=== PATIENT | female | born 1990 | race Caucasian/White ===

== ENCOUNTER 2018-11-05 13:56 | Emergency (ER) | payer OTHER ==
[2018-11-05] MEDS ORDERED: NS 1,000 ML IV ONE (14:44)
[2018-11-05 15:17] LABS: PLATELET COUNT 214 10^3/uL (150-400)
[2018-11-05] MEDS ORDERED: HYDROmorphONE/DILAUDID 2 MG/ML INJ IVP ONE ×2 (15:29→17:58)
--- NOTE | 2018-11-05 15:49 | EDPHY ---
General - History Smoking Status: Current every day smoker Time Seen by Provider: 11/05/18 15:15 Narrative: CLINICAL IMPRESSION: Lower abdominal pain pain, flank pain ASSESSMENT/PLAN: Patient is a 27-year-old female with no significant medical history who presents to the emergency department complaining of difficulty with urination, pelvic pain and flank pain, right greater than left. Patient is afebrile, she is uncomfortable appearing however not toxic-appearing. Her abdomen was soft with generalized tenderness to palpation in the lower abdomen however right greater than the left, bilateral CVA tenderness right greater than the left. CBC revealed no evidence of leukocytosis or anemia. BMP grossly unremarkable. negative, rules out ectopic . Pelvic ultrasound revealed complex cyst on the right ovary, otherwise unremarkable. Renal ultrasound without evidence of hydronephrosis or obvious renal calculi. Urinalysis was unremarkable without evidence of urinary tract infection, do not suspect pyelonephritis. On repeat examination the patient still complains of significant lower abdominal pain, she is tender in the generalized lower abdomen without peritoneal signs. Discussed CT imaging for further evaluation an etiology of her pain. The patient would like to proceed. The patient remained hemodynamically stable and her pain controlled under my care, Dr. Charles will resume care of this patient at this time. DIFFERENTIAL DX: Abdominal pain in a female including but not limited to ovarian cyst, pelvic inflammatory disease, ovarian torsion, urinary tract infection, and appendicitis. Flank pain including but not limited to musculoskeletal causes, kidney stone, pyelonephritis, shingles, and intra-abdominal causes such as diverticulitis and appendicitis. ED COURSE: 1624: Discussed case with radiologist, patient with small right ovarian follicle, involuting cyst. No other significant findings, trace free fluid. Not felt to be recently ruptured cyst. 1645: On repeat examination the patient reports that she is feeling better however still having lower abdominal pain. Discussed her reassuring findings to this point. On re-examination the patient is still very tender in the generalized lower abdomen, right greater than left. No peritoneal signs or evidence of a surgical abdomen. Will proceed with CT imaging. 1655: Case discussed with Dr. Charles CHIEF COMPLAINT: Lower abdominal pain, flank pain HPI: Patient is a 27-year-old female with no significant medical history who presents to the emergency department complaining of pelvic pain, difficulty with urination and flank pain. Patient reports this morning she was a woken from her sleep with pelvic and lower abdominal pain. The pain has been intermittent throughout the day and has been unrelieved with [id number] medications. Patient reports shortly after her abdominal pain started she was started to experience bilateral flank pain, right greater than the left. No recent trauma or injury, she denies any midline pain. Patient denies saddle paresthesias, lower extremity numbness, tingling, major motor weakness, urinary retention or bowel/bladder incontinence. She reports diarrhea last Sunday, normal bowel movements over the weekend and a single loose stool today. Denies any melena or hematochezia. She endorses some difficulty with urination earlier today and some foul-smelling urine however denies dysuria or hematuria. She denies any fevers, chills, nausea or vomiting. Her appetite has been normal. She denies any chest or back pain. Earlier today when she was having most discomfort, she felt like her hands were discolored. This lasted for a brief period of time. Last menstrual period was 2 weeks prior, normal. She denies any vaginal bleeding, vaginal discharge or any concern for STI. PMH: Ovarian cyst Pertinent Past Surgical History: Denies Family History: Not contributory Social History: Denies illicit drug use or cigarette smoking REVIEW OF SYSTEMS: All other systems negative Constitutional: No fever, no chills, appetite change. Eyes: No discharge, vision change ENT: No sore throat, congestion, ear pain. Cardiovascular: No chest pain, no palpitations. Respiratory: No cough, no shortness of breath. Gastrointestinal: Lower abdominal pain. No no vomiting, diarrhea. Genitourinary: Flank pain, pelvic pain. No hematuria, dysuria. Musculoskeletal: No back pain, joint swelling, joint pain, myalgias. Skin: No rashes, color change. Neurological: No headache, dizziness, weakness. PHYSICAL EXAM: General Appearance: Patient is well-developed, she is uncomfortable appearing however not toxic-appearing. HENT: Normocephalic, atraumatic. Bilateral external ears are normal. Bilateral tympanic membranes are normal with pearly villar reflex. Nares are clear, mucosa is pink. Oropharynx is clear however mildly dry, uvula is midline. There is no tonsillar enlargement or exudate. The dentition is normal. Eyes: PERRLA, no acute vision change, nystagmus, swelling, discharge, pain or photosensitivity. Conjunctiva pink, no pallor or injection. Neck: Supple, nontender, no lymphadenopathy, no midline pain, FROM, no meningismus. Respiratory: There are no retractions, lungs are clear to auscultation. Cardiac: Regular rate and rhythm, no murmurs or gallops. Gastrointestinal: Abdomen is soft, bowel sounds normal, no abdominal incisions. Patient has generalized tenderness to palpation however most tender in the lower abdomen, right greater than left. No masses/hernia, no rigidity, guarding or focal peritoneal findings. Bilateral flank tenderness. Neurological: Alert and oriented x 3, CN 2-12 grossly intact, normal gait no ataxia, DTR's intact, normal sensation and strength Skin: Warm, dry, no rashes, no nodules on palpation. Musculoskeletal: Extremities are symmetrical, full range of motion, no tenderness, deformity, swelling, or erythema. Psychiatric: Patient is oriented X 3, there is no agitation. MEDICAL DECISION MAKING: Patient was seen independently. Secondary supervising physician at time of evaluation was Dr. Charles, she also evaluated this patient. Diagnosis: Lower abdominal pain pain, flank pain. New, requires workup Summary: See Assessment and Plan for summary of ED visit Clinical lab tests: ordered / reviewed. Independent visualization of images, tracing, or specimens: Yes. Decision to obtain medical records or history from someone other than the patient: Yes, mother Review / Summarize previous medical records: Yes Discussed patient with another provider: Yes, Dr. Charles Patient Progress: Stable, dispo pending. (Yovana Vasquez) Medical Decision Making: This patient was seen and examined by me. She presents with generalized abdominal pain. CT scan results discussed with the patient and reveal dilation of the small bowel, consistent with enteritis. The patient continues to have mild abdominal pain. Received Dilaudid 0.5 mg approximately 30 min ago. Abdominal exam reveals left upper quadrant tenderness and no peritoneal signs. Toradol 30 mg IV given. Will reassess after Toradol. 1945-feels much better after IV Toradol, pain has resolved. Abdominal exam remains benign. Abdominal pain precautions given. Advised follow-up in 1 day for recheck with PCP. Return sooner for worsening symptoms or any concerns. ( Madalyn Charles) - Diagnostics Imaging Results: Imaging Impressions Pelvic/Renal Ultrasound 11/05/18 15:29 Impression: Complex follicle versus cyst in the right ovary. Otherwise normal pelvic ultrasound. Findings and recommendations discussed with CHRISSIE Avalos, at 4:23 p.m., on November 05, 2018. Final report concurs with initial preliminary interpretation. Abdomen/Pelvis Ultrasound 11/05/18 15:30 Impression: 1. No hydronephrosis. 2. No definite shadowing renal calculi. 3. The bladder is empty. Findings and recommendations discussed with Emergency Department physician, CHRISSIE Avalos, at 1621 hours, on November 05, 2018. Final report concurs with initial preliminary interpretation. Abdomen CT 11/05/18 16:50 Impression: 1. Fluid-filled loops of mid to distal small bowel. This is nonspecific but can be seen with mild enteritis. 2. No CT evidence of appendicitis, abscess or bowel obstruction. Findings discussed with Dr. Anne Charles at 18:13 hour, 11/05/2018. - Objective Vital Signs: Initial Vital Signs Temperature (C) 37.1 C 11/05/18 14:06 Heart Rate 111 H 11/05/18 14:06 Respiratory Rate 18 11/05/18 14:06 Blood Pressure 133/85 H 11/05/18 14:06 O2 Sat (%) 96 11/05/18 14:06 O2 Delivery Mode Room Air Allergies/Adverse Reactions: Sulfa (Sulfonamide Antibiotics) Allergy (Verified 11/05/18 14:10) Home Medications: Medication Instructions Recorded NK [No Known Home Meds] 11/05/18 Laboratory Results: Laboratory Results 11/05/18 14:57 11/05/18 14:57 11/05/18 11/05/18 11/05/18 16:28 14:57 14:57 WBC RBC Hgb Hct MCV MCH MCHC RDW Plt Count MPV Neut % (Auto) Lymph % (Auto) [place] % (Auto) Eos % (Auto) Baso % (Auto) Nucleat RBC Rel Count Absolute Neuts (auto) Absolute Lymphs (auto) Absolute Monos (auto) Absolute Eos (auto) Absolute Basos (auto) Absolute Nucleated RBC Immature Gran % Immature Gran # RBC/WBC/PLT Morphology Platelet Estimate Sodium 135 mEq/L mEq/L (135-145) Potassium 3.9 mEq/L mEq/L (3.5-5.2) Chloride 108 mEq/L mEq/L (97-110) Carbon Dioxide 20 mEq/l L mEq/l (22-31) Anion Gap 7 mEq/L mEq/L (6-14) BUN 22 mg/dL mg/dL (7-23) Creatinine 0.8 mg/dL mg/dL (0.6-1.0) Estimated GFR > 60 Glucose 100 mg/dL mg/dL (70-100) Calcium 9.3 mg/dL mg/dL (8.5-10.4) Beta HCG, Qual NEGATIVE Urine Color YELLOW Urine Appearance CLEAR Urine pH 5.0 (5.0-7.5) Ur Specific [place] 1.035 H (1.002-1.030) Urine Protein NEGATIVE (NEGATIVE) Urine Ketones 1+ H (NEGATIVE) Urine Blood NEGATIVE (NEGATIVE) Urine Nitrate NEGATIVE (NEGATIVE) Urine Bilirubin NEGATIVE (NEGATIVE) Urine Urobilinogen NEGATIVE EU EU (0.2-1.0) Ur Leukocyte Esterase NEGATIVE (NEGATIVE) Urine Glucose NEGATIVE (NEGATIVE) 11/05/18 14:57 WBC 9.43 10^3/uL 10^3/uL (3.80-9.50) RBC 4.88 10^6/uL 10^6/uL (4.18-5.33) Hgb 15.1 g/dL g/dL (12.6-16.3) Hct 43.8 % % (38.0-47.0) MCV 89.8 fL fL (81.5-99.8) MCH 30.9 pg pg (27.9-34.1) MCHC 34.5 g/dL g/dL (32.4-36.7) RDW 11.8 % % (11.5-15.2) Plt Count 214 10^3/uL 10^3/uL (150-400) MPV 10.5 fL fL (8.7-11.7) Neut % (Auto) 89.5 % H % (39.3-74.2) Lymph % (Auto) 4.1 % L % (15.0-45.0) [place] % (Auto) 5.7 % % (4.5-13.0) Eos % (Auto) 0.1 % L % (0.6-7.6) Baso % (Auto) 0.4 % % (0.3-1.7) Nucleat RBC Rel Count 0.0 % % (0.0-0.2) Absolute Neuts (auto) 8.44 10^3/uL H 10^3/uL (1.70-6.50) Absolute Lymphs (auto) 0.39 10^3/uL L 10^3/uL (1.00-3.00) Absolute Monos (auto) 0.54 10^3/uL 10^3/uL (0.30-0.80) Absolute Eos (auto) 0.01 10^3/uL L 10^3/uL (0.03-0.40) Absolute Basos (auto) 0.04 10^3/uL 10^3/uL (0.02-0.10) Absolute Nucleated RBC 0.00 10^3/uL 10^3/uL (0-0.01) Immature Gran % 0.2 % % (0.0-1.1) Immature Gran # 0.02 10^3/uL 10^3/uL (0.00-0.10) RBC/WBC/PLT Morphology TNP Platelet Estimate TNP Sodium Potassium Chloride Carbon Dioxide Anion Gap BUN Creatinine Estimated GFR Glucose Calcium Beta HCG, Qual Urine Color Urine Appearance Urine pH Ur Specific [place] Urine Protein Urine Ketones Urine Blood Urine Nitrate Urine Bilirubin Urine Urobilinogen Ur Leukocyte Esterase Urine Glucose Medications Given: Discontinued Medications Hydromorphone HCl (Dilaudid) 0.5 mg IVP EDNOW ONE Stop: 11/05/18 15:30 Last Admin: 11/05/18 16:22 Dose: 0.5 mg Hydromorphone HCl (Dilaudid) 0.5 mg IVP EDNOW ONE Stop: 11/05/18 17:59 Last Admin: 11/05/18 18:07 Dose: 0.5 mg Sodium Chloride (Ns) 1,000 mls @ 0 mls/hr IV ONCE ONE; Wide Open PRN Reason: Protocol Stop: 11/05/18 14:45 Last Admin: 11/05/18 14:54 Dose: 1,000 mls Ketorolac Tromethamine (Toradol) 30 mg IVP EDNOW ONE Stop: 11/05/18 18:30 Last Admin: 11/05/18 18:37 Dose: 30 mg Departure - Departure Disposition: Home, Routine, Self-Care Clinical Impression: Lower abdominal pain, Bilateral flank pain Condition: Good Instructions: Acute Abdominal Pain (ED), Flank Pain (ED) Additional Instructions: DISCHARGE INSTRUCTIONS FROM YOUR DOCTOR Thank you for visiting our emergency department today. Please keep in mind that discharge from the emergency department does not mean that there is nothing wrong - it simply means that we have not identified an emergency condition that requires further evaluation or treatment in the hospital. You should always plan to follow up with primary care for re-evaluation of your condition in the next 1-2 days. For pain control: Take hydrocodone 1 tablet every 4 hours as needed for severe pain. You may also take ibuprofen 600 mg every 6 hr. Take with food and a full glass of water. Stop taking if this upsets your stomach. Do not exceed 2400 mg in a 24 hr period. Schedule a follow-up appointment with your primary care physician in the next 1- 2 days for re-evaluation. Take a copy of your test results with you to that appointment. Return for increased or unmanageable pain, new site or character of pain, flank pain, groin pain, pelvic pain, development of fever, chills, recurrent vomiting , vomiting blood or coffee grounds, diarrhea, constipation, bloody stools, black tarry stools, burning or pain with urination, bloody urine, inability to urinate, decreased urine output or other signs of dehydration, dizziness, weakness, fainting, difficulty breathing or swallowing, chest pain, or for any other new, worsening or worrisome symptoms. People present with illnesses and injuries in different ways, and it is always possible that we have missed something. You may always return for re-evaluation if symptoms worsen or if they are not improving or if you develop new/different symptoms. Again, thank you for choosing our emergency department. We hope that you feel better. Referrals: GRACIE KEMP [Primary Care Provider] - 1 day without fail
[2018-11-05] MEDS ORDERED: IOPAMIDOL (ISOVUE-300) 100 ML BTL ONE (17:18)
[2018-11-05] MEDS ORDERED: KETOROLAC 15 MG/1 ML SDV IVP ONE (18:29)
[2018-11-05 20:17] VITALS: BP 105/64
[2018-11-05] MEDS ORDERED: HYDROCOD/APAP 5/325 PREPACK#6 BTL TAKEHOME ONE (20:18)
== END 2018-11-05 20:25 | disposition home or self-care (01) ==
DX: R10.31 Right lower quadrant pain (principal); R10.32 Left lower quadrant pain; N83.291 Other ovarian cyst, right side; E86.9 Volume depletion, unspecified
CPT/HCPCS: 96374; J1170; J1885; Q9967